=== PATIENT | male | born 1970 ===

== ENCOUNTER → 2021-02-04 | Outpatient (CLI) | payer OTHER | LOC: SJCVCIMAG 10-23 08:24 | PROVIDERS: ATTEND Internal Medicine Cardiovascular Disease | DX: R07.9 Chest pain, unspecified (principal); E78.00 Pure hypercholesterolemia, unspecified; K21.9 Gastro-esophageal reflux disease without esophagitis; Z88.0 Allergy status to penicillin; Z88.2 Allergy status to sulfonamides; Z79.899 Other long term (current) drug therapy ==